=== PATIENT | male | born 1985 | race Caucasian/White ===

== ENCOUNTER 2023-08-02 10:29 | Inpatient (IN) | payer OTHER ==
[2023-08-02 11:06] VITALS: BMI 22.3
[2023-08-02] MEDS ORDERED: ONDANSETRON *ODT* 4 MG TABLET SL PRN (11:29)
[2023-08-02] MEDS ORDERED: BENZOCAINE/MENTHOL (CHLORASEPTIC ) LOZENGE MM PRN (11:29)
[2023-08-02] MEDS ORDERED: DICYCLOMINE HCL 10 MG CAPSULE PO PRN (11:29)
[2023-08-02] MEDS ORDERED: POLYETHYLENE GLYCOL (HEALTHYLAX) 3350 17 GM PACKET PO PRN (11:29)
[2023-08-02] MEDS ORDERED: BISMUTH SUBSALICYLATE 524 MG/30 ML PO PRN (11:29)
[2023-08-02] MEDS ORDERED: guaiFENesin 600 MG TABLET.ER (FP) PO PRN (11:29)
[2023-08-02] MEDS ORDERED: BENZONATATE 200 MG CAPSULE PO PRN (11:29)
[2023-08-02] MEDS ORDERED: NALOXONE HCL 0.4 MG/ML VIAL IM PRN (11:29)
[2023-08-02] MEDS ORDERED: NICOTINE POLACRILEX 4 MG GUM BUC PRN (11:29)
[2023-08-02] MEDS ORDERED: MAGNESIUM HYDROX 2400MG/30ML ORAL SUSPENSION 30 ML CUP PO PRN (11:29)
[2023-08-02] MEDS ORDERED: NALOXONE HCL (KLOXXADO) 8 MG SPRAY NS PRN (11:29)
[2023-08-02] MEDS ORDERED: MAG HYDROX/AL HYDROX/SIMETH 30 ML UNIT-DOSE CUP PO PRN (11:29)
[2023-08-02] MEDS ORDERED: LOPERAMIDE HCL 2 MG CAPSULE PO PRN (11:29)
[2023-08-02] MEDS ORDERED: NICOTINE 21 MG/24 HOURS TOPICAL PATCH ONE (11:43)
[2023-08-02] MEDS ORDERED: diazePAM 5 MG TABLET ONE (11:43)
[2023-08-02] MEDS ORDERED: BUPRENORPHINE/NALOXONE 4 MG/1 MG FILM PACKET ONE (11:43)
[2023-08-02] MEDS: BUPRENORPHINE/NALOXONE 8 MG/2 MG FILM PACKET SL ONE (11:51)
[2023-08-02] MEDS: diazePAM 5 MG TABLET PO ONE (11:51)
[2023-08-02] MEDS ORDERED: LIDOCAINE 5% TOPICAL PATCH TP PRN (12:52)
[2023-08-02] MEDS: NICOTINE 21 MG/24 HOURS TOPICAL PATCH TD SCH (13:00)
[2023-08-02] MEDS: APIXABAN 5 MG TABLET PO SCH (13:59)
[2023-08-02] MEDS: AMOX TR/POT CLAV 875MG/125MG TABLETS (FP) PO SCH (14:00)
[2023-08-02] MEDS: GABAPENTIN 300 MG CAPSULE PO SCH ×2 (14:04→14:15)
[2023-08-02] MEDS: BACITRACIN 0.9 GM PACKET TP SCH ×2 (14:12→14:13)
[2023-08-02] MEDS: diazePAM 5 MG TABLET PO SCH (17:27)
[2023-08-02] MEDS: METHOCARBAMOL 500 MG TABLET PO PRN (17:29)
[2023-08-02] MEDS: hydrOXYzine PAMOATE 25 MG CAPSULE (FP) PO PRN (17:29)
[2023-08-02] MEDS: THIAMINE 100 MG TABLET PO SCH (22:49)
[2023-08-02] MEDS: MELATONIN 5 MG TABLETS PO SCH (22:49)
[2023-08-02] MEDS: BUPRENORPHINE/NALOXONE 8 MG/2 MG FILM PACKET SL SCH (22:50)
[2023-08-02] MEDS: LIDOCAINE PATCH REMOVAL MC SCH (22:51)
[2023-08-03] MEDS: PRENATAL VITAMINS W/ FOLIC ACID TABLET (FP) PO SCH (10:30)
[2023-08-03 11:12] LABS: HEMATOCRIT 32.1 % (35.4-49); HEMOGLOBIN 10.4 GM/dL (11.7-16.9); MCH 25.4 pg (25.7-33.7); MCHC 32.4 g/dl (32.0-35.9); MEAN CELL VOLUME 78.4 fl (80-96); MEAN PLT VOLUME 7.1 fl (7.5-11.1); PLATELET COUNT 664 10^3/uL (134-434); RBC 4.09 M/mm3 (4.00-5.60); RDW 16.6 % (11.9-15.9); WHITE BLOOD COUNT 8.1 K/mm3 (4.0-10.0)
[2023-08-03 11:19] LABS: POTASSIUM 4.3 mmol/L (3.5-5.1)
[2023-08-03 11:21] LABS: ALBUMIN 2.2 g/dl (3.4-5.0); BLOOD UREA NITROGEN 6.5 mg/dL (7-18); CALCIUM 8.4 mg/dL (8.5-10.1)
[2023-08-03 11:24] LABS: CREATININE 0.6 mg/dL (0.55-1.3)
[2023-08-03 11:25] LABS: BILIRUBIN,TOTAL 0.2 mg/dL (0.2-1)
[2023-08-03] MEDS: diazePAM 5 MG TABLET PO PRN (13:51)
[2023-08-03] MEDS: ACETAMINOPHEN 325 MG TABLET (FP) PO PRN (21:11)
[2023-08-03] MEDS: BUPRENORPHINE/NALOXONE 8 MG/2 MG FILM PACKET SL PRN (23:07)
[2023-08-04] MEDS: diazePAM 5 MG TABLET PO SCH (05:30)
[2023-08-04] MEDS: BUPRENORPHINE/NALOXONE 8 MG/2 MG FILM PACKET SL SCH (15:00)
[2023-08-05] MEDS: diazePAM 5 MG TABLET PO SCH (05:27)
[2023-08-06] MEDS: diazePAM 5 MG TABLET PO ONE (05:28)
[2023-08-06 08:51] VITALS: BP 132/82; PULSE 109; RESP 16; TEMP 97.1
[2023-08-07] MEDS ORDERED: APIXABAN 5 MG TABLET PO SCH (22:00)
== END 2023-08-06 09:34 | disposition other institution (70) | DRG 773 ==
LOC: YASAS 10:29 → Y6N 11:47
PROVIDERS: ADMIT Allergy & Immunology; ATTEND Surgery
PROC: HZ2ZZZZ Detoxification Services for Substance Abuse Treatment (ICD-10-PCS; principal; 2023-08-02)
DX: F13.230 Sedative, hypnotic or anxiolytic dependence with withdrawal, uncomplicated (principal); F11.20 Opioid dependence, uncomplicated; F14.20 Cocaine dependence, uncomplicated; F17.210 Nicotine dependence, cigarettes, uncomplicated; G62.9 Polyneuropathy, unspecified; J18.9 Pneumonia, unspecified organism; I82.C22 Chronic embolism and thrombosis of left internal jugular vein; Z79.01 Long term (current) use of anticoagulants; Z87.828 Personal history of other (healed) physical injury and trauma; Z28.310 Unvaccinated for COVID-19; Z28.9 Immunization not carried out for unspecified reason
CPT/HCPCS: 36415; 80053; 83021; 85027; 85660; 86780; 87522; 93005; 93010

== ENCOUNTER 2024-03-10 13:24 | Inpatient (IN) | payer OTHER ==
[2024-03-10 14:37] VITALS: BMI 27.8
[2024-03-10] MEDS ORDERED: IBUPROFEN 400 MG TABLET (FP) PO PRN (15:04)
[2024-03-10] MEDS ORDERED: P-EPHED 60MG/TRIPROLIDI 2.5MG TABLET PO PRN (15:04)
[2024-03-10] MEDS ORDERED: POLYETHYLENE GLYCOL (HEALTHYLAX) 3350 17 GM PACKET PO PRN (15:04)
[2024-03-10] MEDS ORDERED: NICOTINE POLACRILEX 2 MG GUM BUC PRN (15:04)
[2024-03-10] MEDS ORDERED: LOPERAMIDE HCL 2 MG CAPSULE PO PRN (15:04)
[2024-03-10] MEDS ORDERED: BENZONATATE 200 MG CAPSULE PO PRN (15:04)
[2024-03-10] MEDS ORDERED: NICOTINE POLACRILEX 2 MG LOZENGE BC PRN (15:04)
[2024-03-10] MEDS ORDERED: MAGNESIUM HYDROX 2400MG/30ML ORAL SUSPENSION 30 ML CUP PO PRN (15:04)
[2024-03-10] MEDS ORDERED: BENZOCAINE/MENTHOL (CHLORASEPTIC ) LOZENGE MM PRN (15:04)
[2024-03-10] MEDS ORDERED: DOCUSATE SODIUM 100 MG CAPSULE (FP) PO PRN (15:04)
[2024-03-10] MEDS ORDERED: IBUPROFEN 600 MG TABLET (FP) PO PRN (15:04)
[2024-03-10] MEDS ORDERED: NALOXONE (NARCAN) HCL 4 MG/0.1 ML SPRAY NS PRN (15:04)
[2024-03-10] MEDS ORDERED: guaiFENesin 600 MG TABLET.ER (FP) PO PRN (15:04)
[2024-03-10] MEDS ORDERED: hydrOXYzine PAMOATE 25 MG CAPSULE (FP) PO PRN (15:04)
[2024-03-10] MEDS ORDERED: guaiFENesin 600 MG TABLET.ER (FP) PO SCH (22:00)
[2024-03-10] MEDS: APIXABAN 5 MG TABLET PO SCH (22:39)
[2024-03-10] MEDS: THIAMINE 100 MG TABLET PO SCH (22:39)
[2024-03-10] MEDS: MELATONIN 5 MG TABLETS PO SCH (22:39)
[2024-03-10] MEDS: AMMONIUM LACTATE 12% LOTION 225 GM BOTTLE TP SCH (22:39)
[2024-03-11] MEDS: PRENATAL VITAMINS W/ FOLIC ACID TABLET (FP) PO SCH (09:42)
[2024-03-11] MEDS: BUPRENORPHINE/NALOXONE 8 MG/2 MG FILM PACKET SL ONE (11:06)
[2024-03-11] MEDS: QUEtiapine FUMARATE 50 MG TABLET PO SCH (21:55)
[2024-03-11] MEDS: BUPRENORPHINE/NALOXONE 8 MG/2 MG FILM PACKET SL SCH (21:56)
[2024-03-12] MEDS: BUPRENORPHINE/NALOXONE 8 MG/2 MG FILM PACKET SL ONE (15:29)
[2024-03-14 18:45] LABS: PH,URINE 6.5 (5.0-8.0); URINE APPEARANCE Clear; URINE BILIRUBIN Negative (NEGATIVE); URINE COLOR Yellow; URINE GLUCOSE (UA) Negative (NEGATIVE); URINE KETONE Negative (NEGATIVE); URINE LEUK ESTERASE Negative (NEGATIVE); URINE NITRITE Negative (NEGATIVE); URINE PROTEIN Negative (NEGATIVE); URINE UROBILINOGEN 0.2 mg/dL (0.2-1.0)
[2024-03-16 11:16] LABS: BASO % 0.4 % (0-2.0); EOS % 1.7 % (0-4.5); HEMATOCRIT 44.4 % (35.4-49); LYMPH % 55.7 % (8-40); MCH 28.3 pg (25.7-33.7); MCHC 33.9 g/dl (32.0-35.9); MEAN CELL VOLUME 83.6 fl (80-96); MEAN PLT VOLUME 8.9 fl (7.5-11.1); MONO % 5.1 % (3.8-10.2); NEUT % 37.1 % (42.8-82.8); PLATELET COUNT 216 10^3/uL (134-434); RBC 5.31 M/mm3 (4.00-5.60); WHITE BLOOD COUNT 4.4 K/mm3 (4.0-10.0)
[2024-03-16 11:21] LABS: POTASSIUM 4.3 mmol/L (3.5-5.1)
[2024-03-16 11:23] LABS: CALCIUM 9.2 mg/dL (8.5-10.1)
[2024-03-16 11:24] LABS: ALBUMIN 3.8 g/dl (3.4-5.0); BLOOD UREA NITROGEN 17.9 mg/dL (7-18)
[2024-03-16 11:27] LABS: CREATININE 0.7 mg/dL (0.55-1.3)
[2024-03-16 11:28] LABS: BILIRUBIN,TOTAL 0.5 mg/dL (0.2-1)
[2024-03-16 11:29] LABS: TOT PROT 7.9 g/dl (6.4-8.2)
[2024-03-17] MEDS ORDERED: AMMONIUM LACTATE 12% LOTION 225 GM BOTTLE TP PRN (08:40)
[2024-03-19] MEDS ORDERED: NICOTINE POLACRILEX 4 MG GUM BUC PRN (16:54)
[2024-03-19] MEDS: NICOTINE 14 MG/24 HOURS TOPICAL PATCH TD SCH (17:56)
[2024-03-19] MEDS: QUEtiapine FUMARATE 100 MG TABLET (FP) PO SCH (21:06)
[2024-03-21] MEDS: ACETAMINOPHEN 325 MG TABLET (FP) PO PRN (09:09)
[2024-03-21] MEDS: MAG HYDROX/AL HYDROX/SIMETH 30 ML UNIT-DOSE CUP PO PRN (09:09)
[2024-03-24] MEDS ORDERED: NICOTINE 14 MG/24 HOURS TOPICAL PATCH TD PRN (15:08)
[2024-03-25] MEDS: BUPRENORPHINE/NALOXONE 8 MG/2 MG FILM PACKET SL ONE (15:20)
[2024-03-26] MEDS ORDERED: IBUPROFEN 600 MG TABLET (FP) PO PRN (14:23)
[2024-03-26] MEDS: AMOX TR/POT CLAV 500MG/125MG TABLETS (FP) PO SCH (17:40)
[2024-03-26] MEDS: BACLOFEN 10 MG TABLET (FP) PO SCH (21:19)
[2024-03-31 06:40] VITALS: BP 114/79; PULSE 62; RESP 16; TEMP 97.8
[2024-03-31] MEDS: NALOXONE (NYS OPIOID OVERDOSE PROGRAM) 4 MG/0.1 ML SPRAY NS SCH (08:58)
== END 2024-03-31 09:19 | disposition home or self-care (01) | DRG 772 ==
LOC: YASAS 13:24 → Y3NR 17:33 → Y3E 03-12 10:32
PROVIDERS: ADMIT Psychiatry & Neurology Pain Medicine; ATTEND Psychiatry & Neurology Pain Medicine
PROC: HZ42ZZZ Group Counseling for Substance Abuse Treatment, Cognitive-Behavioral (ICD-10-PCS; principal; 2024-03-10)
DX: F11.20 Opioid dependence, uncomplicated (principal); F14.20 Cocaine dependence, uncomplicated; F17.210 Nicotine dependence, cigarettes, uncomplicated; G47.00 Insomnia, unspecified; K02.9 Dental caries, unspecified; Z86.718 Personal history of other venous thrombosis and embolism; Z79.01 Long term (current) use of anticoagulants
CPT/HCPCS: 36415; 80053; 80305; 81003; 82652; 85025; 86780; 93005; 93010; J0475